=== PATIENT | female | born 1950 | race Caucasian/White ===

== ENCOUNTER → 2016-06-03 | Outpatient (CLI) | payer BC ==
[~2016-06-03] MED LIST: ASPI-482 PO; BENA1TAB6 PO; FEXO180T81 PO; OMEG1CAP6 PO; OMEP40CA5 PO; SIMV10TA3 PO
--- NOTE | 2016-06-04 13:12 | KCIC ---
Bilateral digital screening mammograms with CAD: HISTORY COMPARISON Comparison is made to previous studies dated 05/17/2015, 03/31/2012 and 03/11/2011. FINDINGS Breast density category B. The skin and nipples show no abnormalities. No abnormal lymph nodes are seen in the axilla. The breast parenchyma shows scattered fibroglandular density. There continue to be small parenchymal densities bilaterally which have not changed. There are no new dominant masses, suspicious calcifications or architectural distortions. Benign appearing calcifications are present IMPRESSION No evidence of malignancy. Recommend routine annual mammographic screening. This study was interpreted with the benefit of Computerized Aided Detection (CAD). Mammography is not 100% sensitive in detecting breast cancer. Therefore, a self breast exam and a clinical breast exam are very important. A negative mammogram does not negate a clinically suspicious finding and should not result in a delay in biopsying a clinically suspicious abnormality. BI-RADS category 2. Benign. This patient's information has been entered into a reminder system for the patient to be notified with the results of this examination and a target date for her next mammograms. Electronically signed by: Marissa Wilkinson MD (Jun 04, 2016 13:10:15)
== END | disposition home or self-care (01) ==
LOC: KCIC MAMMO 16:51
PROVIDERS: ATTEND Family Medicine
DX: Z12.31 Encounter for screening mammogram for malignant neoplasm of breast (principal)
CPT/HCPCS: G0202; 77067

== ENCOUNTER 2016-07-26 14:48 | Emergency (ER) | payer BC, OTHER ==
[~2016-07-26] VITALS: Ht 157.5 cm; Wt 81.6 kg
[2016-07-26] MEDS ORDERED: 0.9 % SODIUM CHLORIDE 10 ML DISP.SYRIN. IV PRN (15:15)
--- NOTE | 2016-07-26 15:16 | EKG ---
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
--- NOTE | 2016-07-26 15:23 | PHYS DOC ---
Past Medical History Past Medical History: Diabetes-Type II, GERD, High Cholesterol, Hypertension Past Surgical History: Other Additional Past Surgical Histo: BILAT CTR, BILAT TRIGGER FINGER, LEFT KNEE- TORN MENISCUS Alcohol Use: None Drug Use: None Adult General Chief Complaint Chief Complaint: CHEST PAIN HPI HPI Patient is a pleasant 66 yo diabetic female with 3 days hx of intermittent CP on the left chest that radiates to the left shoulder and arm. she describes the pain as achy and discomfort with increased exhibits coordinator cough, no fever, no URI symptoms, travel outside the country, no recent antibiotics. patient says pain lasted about 1-2 hours in the left chest wall location, which began at rest. no n/v/d/ ab pain, dizziness, fever, ear pain, trauma recently (only 10 days ago ) but she only fell to the ground and struck her knees. no prior hx of the same. patient is concerned about CP but has no symptoms at this time. Differential diagnosis for chest pain: Pericarditis, myocarditis, endocarditis, pneumothorax, pneumonia, aortic dissection, esophageal spasm, esophagitis, peptic ulcer disease, acute coronary syndrome, mediastinitis, Boerhaave syndrome , musculoskeletal chest wall pain, costochondritis, intercostal strain, rib fracture, pulmonary contusion, pneumonitis, pleural effusion, pericardial effusion, pericardial tamponode, and pleurisy. Initial presentation and evaluation will require EKG, cardiac enzymes, supportive workup of CMP CBC mag level lipase TSH chest x-ray possible CT angios chest. She was given aspirin and fluids Review of Systems Review of Systems Constitutional: Denies fever or chills [] Eyes: Denies change in visual acuity, redness, or eye pain [] HENT: Denies nasal congestion or sore throat [] Respiratory: presents with exhibits coordinator cough no SOB Cardiovascular: No additional information not addressed in HPI [] GI: Denies abdominal pain, nausea, vomiting, bloody stools or diarrhea [] : Denies dysuria or hematuria [] Musculoskeletal: Denies back pain or joint pain [] Integument: Denies rash or skin lesions [] Neurologic: Denies headache, focal weakness or sensory changes [] Endocrine: Denies polyuria or polydipsia [] Family History Family History She has a a family history were brother and father both had lower extremity DVTs and massive pulmonary emboli. Current Medications Current Medications Current Medications Medications (Trade) Dose Ordered Sig/Marisela Start Time Stop Time Status Last Admin Dose Admin Aspirin (Children'S Aspirin) 324 mg 1X ONCE 07/26/16 15:30 07/26/16 15:31 DC 07/26/16 15:33 324 MG Sodium Chloride (Normal Saline Flush) 10 ml QSHIFT PRN 07/26/16 15:15 Allergies Allergies Allergies Coded Allergies Type Severity Reaction Last Updated Verified No Known Drug Allergies 12/02/13 No Physical Exam Physical Exam demonstrates HTN Constitutional: Well developed, well nourished, no acute distress, non-toxic appearance. [] HENT: Normocephalic, atraumatic, bilateral external ears normal, oropharynx moist, no oral exudates, nose normal. [] Eyes: PERRLA, EOMI, conjunctiva normal, no discharge. [] Neck: Normal range of motion, no tenderness, supple, no stridor. [] Cardiovascular:Heart rate regular rhythm, no murmur [] Lungs & Thorax: Bilateral breath sounds clear to auscultation [] Abdomen: Bowel sounds normal, soft, no tenderness, no masses, no pulsatile masses. [] Skin: Warm, dry, no erythema, no rash. [] Back: No tenderness, no CVA tenderness. [] Extremities: No tenderness, no cyanosis, no clubbing, ROM intact, no edema. [] Neurologic: Alert and oriented X 3, normal motor function, normal sensory function, no focal deficits noted. [] Psychologic: Affect normal, judgement normal, mood normal. [] Current Patient Data Vital Signs Vital Signs Date Time Temp Pulse Resp B/P (MAP) Pulse Ox O2 Delivery O2 Flow Rate FiO2 07/26/16 19:00 82 154/74 (100) 95 Room Air 07/26/16 15:04 97.4 18 97.4 Lab Values Laboratory Tests Test 07/26/16 15:10 07/26/16 16:00 White Blood Count 7.6 x10^3/uL (4.0-11.0) Red Blood Count 4.87 x10^6/uL (3.50-5.40) Hemoglobin 13.8 g/dL (12.0-15.5) Hematocrit 41.8 % (36.0-47.0) Mean Corpuscular Volume 86 fL (79-100) Mean Corpuscular Hemoglobin 28 pg (25-35) Mean Corpuscular Hemoglobin Concent 33 g/dL (31-37) Red Cell Distribution Width 13.2 % (11.5-14.5) Platelet Count 192 x10^3/uL (140-400) Neutrophils (%) (Auto) 60 % (31-73) Lymphocytes (%) (Auto) 28 % (24-48) Monocytes (%) (Auto) 8 % (0-9) Eosinophils (%) (Auto) 4 % (0-3) H Basophils (%) (Auto) 1 % (0-3) Neutrophils # (Auto) 4.5 x10^3uL (1.8-7.7) Lymphocytes # (Auto) 2.1 x10^3/uL (1.0-4.8) Monocytes # (Auto) 0.6 x10^3/uL (0.0-1.1) Eosinophils # (Auto) 0.3 x10^3/uL (0.0-0.7) Basophils # (Auto) 0.0 x10^3/uL (0.0-0.2) D-Dimer (Tatyana) 0.71 ug/mlFEU (0.00-0.50) H Sodium Level 141 mmol/L (136-145) Potassium Level 4.3 mmol/L (3.5-5.1) Chloride Level 104 mmol/L (98-107) Carbon Dioxide Level 29 mmol/L (21-32) Anion Gap 8 (6-14) Blood Urea Nitrogen 30 mg/dL (7-20) H Creatinine 1.6 mg/dL (0.6-1.0) H Estimated GFR (Cockcroft-Gault) 32.3 Glucose Level 183 mg/dL (70-99) H Calcium Level 9.4 mg/dL (8.5-10.1) Magnesium Level 1.6 mg/dL (1.8-2.4) L Total Bilirubin 0.2 mg/dL (0.2-1.0) Direct Bilirubin 0.1 mg/dL (0.0-0.2) Aspartate Amino Transferase (AST) 24 U/L (15-37) Alanine Aminotransferase (ALT) 42 U/L (14-59) Alkaline Phosphatase 61 U/L (46-116) Creatine Kinase 61 U/L (26-192) Creatine Kinase MB (Mass) 0.9 ng/mL (0.0-3.6) Creatine Kinase MB Relative Index % (0-4) Troponin I Quantitative < 0.017 ng/mL (0.000-0.055) EV-Eep-T-Type Natriuretic Peptide 45 pg/mL (0-124) Total Protein 7.6 g/dL (6.4-8.2) Albumin 3.7 g/dL (3.4-5.0) Lipase 207 U/L (73-393) Thyroid Stimulating Hormone (TSH) 2.718 uIU/mL (0.358-3.74) Urine Collection Type Unknown Urine Color Yellow Urine Clarity Clear Urine pH 5.0 Urine Specific [place] 1.015 Urine Protein Negative mg/dL (NEG-TRACE) Urine Glucose (UA) Negative mg/dL (NEG) Urine Ketones (Stick) Negative mg/dL (NEG) Urine Blood Negative (NEG) Urine Nitrite Negative (NEG) Urine Bilirubin Negative (NEG) Urine Urobilinogen Dipstick 0.2 mg/dL (0.2 mg/dL) Urine Leukocyte Esterase Large (NEG) Urine RBC 0 /HPF (0-2) Urine WBC 20-40 /HPF (0-4) Urine Transitional Epithelial Cells Few /LPF Urine Bacteria 0 /HPF (0-FEW) Urine Hyaline Casts Moderate /HPF Urine Mucus Slight /LPF Laboratory Tests 07/26/16 15:10 Laboratory Tests 07/26/16 15:10 EKG EKG [] EKG timed [address] Payne 07/26/2016 shows normal sinus rhythm heart rate 91. Intervals normal 138 QRS is normal 74 QTc is normal for 13 there is left axis deviation there is no ST segment T-wave changes consistent with acute cornea syndrome there is inverted T waves in V1 which may be a normal variant. Radiology/Procedures Radiology/Procedures [] [address] [place], [place] [id number] IMAGING REPORT Signed PATIENT: KISHA JIMENES ACCOUNT: [id number] : 1950 LOCATION: ER AGE: 66 SEX: F EXAM STATUS: PRE ER ORD. PHYSICIAN: NBA PAYNE MD REASON: chest pain PROCEDURE: PORTABLE CHEST 1V Indication chest pain. A single view chest was obtained. No prior imaging of the chest is available. Inspiratory effort is suboptimal. This may be a function, at least heart, of patient body habitus. There is some slight volume loss at the left lung base probably reflecting atelectasis. Inflammation is not entirely excluded. There is a calcified granuloma in the right lung. Significant pleural fluid is not seen. There is no pneumothorax. IMPRESSION: Slightly suboptimal inspiratory effort. Modest volume loss at the left lung base likely reflects atelectasis. Pneumonia is not entirely excluded. DICTATED and SIGNED BY: DEVYN LAWSON MD DATE: 07/26/16 8090 CC: NBA PAYNE MD; MOHIT HOWE MD ~ IMAGING REPORT Signed PATIENT: KISHA JIMENES ACCOUNT: [id number] : 1950 LOCATION: ER AGE: 66 SEX: F EXAM STATUS: REG ER ORD. PHYSICIAN: NBA PAYNE MD REASON: sob /NM NOTIFIED PROCEDURE: LUNG VENT/PERFUSION SCAN(VQ) Indication: left lower chest wall pain radiates to neck down left arm for 3 days. Technique: Static images are obtained of both lungs following inhalation of 19 mCi of xenon-133 and again following IV administration of 6 mCi of 99 M technetium MAA. Comparison: Chest x-ray from earlier same day Findings: No definite mismatched defects that are worse on the perfusion when compared to the ventilation images. Patchy defects are seen both on the ventilation and perfusion images. Impression: 1. Low probability of pulmonary embolus. Electronically signed by: Sebas Rashid MD (07/26/2016 7:47 PM) DICTATED and SIGNED BY: SEBAS RASHID MD DATE: 07/26/16 123 CC: NBA PAYNE MD; MOHIT HOWE MD ~ Course & Med Decision Making Course & Med Decision Making Pertinent Labs and Imaging studies reviewed. (See chart for details) reviewed nursing notes, vital signs, past medical history and lab work back. Patient presents with chest pain and risk factors to include diabetes, hypertension, hyperlipidemia and a concerning story for possible cardiac chest pain. He states it is been episodic for last 3 days. Patient's initial cardiac enzymes are all normal including EKG, chest x-ray which is suboptimal but does not show any signs of cardiomegaly or infiltrate. Patient'spatient's CBC CMP are all normal TSH is normal. D-dimer was mildly elevated. He is awaiting a CT angios chest. Differential diagnosis for chest pain: Pericarditis, myocarditis, endocarditis, pneumothorax, pneumonia, aortic dissection, esophageal spasm, esophagitis, peptic ulcer disease, acute coronary syndrome, mediastinitis, Boerhaave syndrome , musculoskeletal chest wall pain, costochondritis, intercostal strain, rib fracture, pulmonary contusion, pneumonitis, pleural effusion, pericardial effusion, pericardial tamponode, and pleurisy. Patient's EKG was not showing any signs of acute ischemia. Troponin initially upon arrival was negative patient's CBC was normal patient's myoglobin was unremarkable patient's TSH level is normal unremarkable patient's BUN/ creatinine were mildly elevated creatinine was 1.6. Given her some symptoms of chest pain and positive d-dimer elected to VQ scan this patient. To ensure that there is no pulmonary most given her family history. PERC Criteria Assessment: Age > 50: No HR > 100: No 02 < 95%: No H/o DVT/PE: No Recent trauma/surgery: No Hemoptysis No Exogenous Estrogen: No Unilateral Leg swelling: No Pretest probability > 15%: No Less than 2% risk of PE. No further work up is necessary Patient fortunately is over the age of 50 History: Highly suspicious 2 points moderately suspicious 1. slightly suspicious 0 point EKG: ST segment depression 2. nonspecific repolarization disturbance 1. normal 0 point Age: Greater than 65 2 points, 65-45 1., less than 45 years old 0 points Risk factors:> 3 risk factors 2 points, 1-2 risk factors one point, no risk factors 0 point Troponin: > 2 times normal 2 points, 1-2 times normal 1., normal limits 0 point Total score: Score % pts MACE/n MACE Policy 0-3 32% 1.9% 0.05% Discharge 4-6 51% 413/3136 13% 1.3% Observation Risk management 7-10 17% 518/1045 50% 2.8% Observation Treatment, CAG Patient has a heart score only of 2 which means she can be managed as an outpatient follow-up with cardiology for routine stress testing. Patient tells me that their symptoms given during CC are improved. We reviewed labs and radiology reports with patient and any family at bedside. Time is now 6 :30 PM patient waiting for VQ scan to be completed. Patient tells me that their symptoms given during CC are improved. We reviewed labs and radiology reports with patient and any family at bedside. Time is now 7 :30 PM patient's awaiting for VQ scan. Patient tells me that their symptoms given during CC are improved. We reviewed labs and radiology reports with patient and any family at bedside. VQ scan is now returned read as normal with low probably for pulmonary embolism. His last at length with sister via phone at bedside name Janee Martines Impression: Chest pain unclear etiology, elevated BUN/creatinine renal insufficiency, dehydration. Disposition: Discharge with follow-up with cardiology and primary care physician encouraged to increase hydration aspirin use daily repeat evaluation by cardiology for stress test and reevaluation of any kidney function. Dragon Disclaimer Dragon Disclaimer This electronic medical record was generated, in whole or in part, using a voice recognition dictation system. Departure Departure Impression: Primary Impression: Chest pain Additional Impression: Renal insufficiency Disposition: HOME, SELF-CARE Condition: IMPROVED Referrals: MOHIT HOWE MD (PCP) Patient Instructions: Chest Pain (Nonspecific), Chronic Renal Insufficiency Additional Instructions: Precautions given asked to follow-up with cardiology and primary care doctor for continued evaluation of chest pain origin. Talked about possibly still having heart disease although there is no evidence of heart damage today. Patient has low probability for pulmonary most at this time per was positive because of age and she has significant family history I would advise that she follows up with her primary care doctor for continued hypercoagulation evaluation as well as encourage repeat evaluation of kidney function as as noted to be in a state of insufficiency today. Problem Qualifiers NBA PAYNE MD Jul 26, 2016 15:23
[2016-07-26] MEDS ORDERED: IV NORMAL SALINE 1000ML BAG 1,000 ML IV SCH (15:30)
[2016-07-26] MEDS ORDERED: ASPIRIN CHEWABLE 81 MG TABLET. PO ONE (15:30)
[2016-07-26 15:34] LABS: BASO % 1 % (0-3); EOS % 4 % (0-3); HEMATOCRIT 41.8 % (36.0-47.0); HEMOGLOBIN 13.8 g/dL (12.0-15.5); LYMPH # 2.1 x10^3/uL (1.0-4.8); LYMPH % 28 % (24-48); MEAN CORPUSCULAR HEMOGLOBIN 28 pg (25-35); MEAN CORPUSCULAR HGB CONC 33 g/dL (31-37); MEAN CORPUSCULAR VOLUME 86 fL (79-100); MONO % 8 % (0-9); NEUT % 60 % (31-73); PLATELET COUNT 192 x10^3/uL (140-400); RED BLOOD COUNT 4.87 x10^6/uL (3.50-5.40); RED CELL DISTRIBUTION WIDTH 13.2 % (11.5-14.5); WHITE BLOOD COUNT 7.6 x10^3/uL (4.0-11.0)
--- NOTE | 2016-07-26 15:50 | RAD ---
Indication chest pain. A single view chest was obtained. No prior imaging of the chest is available. Inspiratory effort is suboptimal. This may be a function, at least heart, of patient body habitus. There is some slight volume loss at the left lung base probably reflecting atelectasis. Inflammation is not entirely excluded. There is a calcified granuloma in the right lung. Significant pleural fluid is not seen. There is no pneumothorax. IMPRESSION: Slightly suboptimal inspiratory effort. Modest volume loss at the left lung base likely reflects atelectasis. Pneumonia is not entirely excluded.
[2016-07-26 15:53] LABS: CALCIUM 9.4 mg/dL (8.5-10.1); CREATININE 1.6 mg/dL (0.6-1.0); GFR 32.3; POTASSIUM 4.3 mmol/L (3.5-5.1)
[2016-07-26 15:59] LABS: ALBUMIN 3.7 g/dL (3.4-5.0); DIRECT BILIRUBIN 0.1 mg/dL (0.0-0.2); MAGNESIUM 1.6 mg/dL (1.8-2.4); TOTAL BILIRUBIN 0.2 mg/dL (0.2-1.0); TOTAL PROTEIN 7.6 g/dL (6.4-8.2)
[2016-07-26 16:05] LABS: CKMB MASS 0.9 ng/mL (0.0-3.6); CREATINE KINASE 61 U/L (26-192)
[2016-07-26 16:10] LABS: BILIRUBIN,URINE NEGATIVE (NEG); GLUCOSE,URINE NEGATIVE (NEG); NITRITE,URINE NEGATIVE (NEG); PROTEIN,URINE NEGATIVE (NEG-TRACE); UROBILINOGEN,URINE 0.2 mg/dL (0.2 mg/dL)
[2016-07-26 16:19] LABS: BACTERIA,URINE 0 /HPF (0-FEW); RBC,URINE 0 /HPF (0-2); WBC,URINE 20-40 /HPF (0-4)
--- NOTE | 2016-07-26 19:50 | RAD ---
Indication: left lower chest wall pain radiates to neck down left arm for 3 days. Technique: Static images are obtained of both lungs following inhalation of 19 mCi of xenon-133 and again following IV administration of 6 mCi of 99 M technetium MAA. Comparison: Chest x-ray from earlier same day Findings: No definite mismatched defects that are worse on the perfusion when compared to the ventilation images. Patchy defects are seen both on the ventilation and perfusion images. Impression: 1. Low probability of pulmonary embolus. Electronically signed by: Sebas Hager MD (07/26/2016 7:47 PM)
[2016-07-26 20:24] VITALS: BP 197/93
== END 2016-07-26 20:30 | disposition home or self-care (01) ==
LOC: ER 14:48
DX: R07.89 Other chest pain (principal); N28.9 Disorder of kidney and ureter, unspecified; E11.9 Type 2 diabetes mellitus without complications; K21.9 Gastro-esophageal reflux disease without esophagitis; E78.00 Pure hypercholesterolemia, unspecified; I10 Essential (primary) hypertension
CPT/HCPCS: 36415; 71010; 78582; 80048; 80076; 81001; 82550; 82553; 83690; 83735; 83880; 84443; 84484; 85027; 85379; 87086; 93005; 96361; 96374; 99285; A9540; A9558; J7030; 96360

== ENCOUNTER → 2016-10-07 | Outpatient (CLI) | payer OTHER ==
--- NOTE | 2016-10-07 12:36 | RAD ---
APPROVED REPORT Test Type: Exercise Stress Nurse/Tech: bettye weiss Test Indications: left arm pain and chest pain Cardiac History: HTN, SEE EHR Medications: SEE EHR Medical History: DECREASED KIDNEY FUNCTION, DIABETES, SEE EHR Resting ECG: SR Resting Heart Rate: 68 bpm Resting Blood Pressure: 158/85mmHg Pretest Chest Pain: No chest pain Nurse/Tech Notes NO RESPIRATORY ISSUES, NO CHEST PAIN STATED. Consent: The procedure was explained to the patient in lay terms. Informed consent was witnessed. Panda eout was entered into [facility]. History and Stress Test performed by RANI Buchanan Stress Symptoms LEG FATIGUE, SOA. POST EXERCISE Reason for Termination: Reached target heart rate Target HR: 131 Max HR: 140 bpm 100% of Maximum Predicted HR: 131 bpm Exercise duration: 6:29 min:sec, 3 Stage Exercise capacity: 10.0METs Max Blood Pressure: 198/80mmHg Blood Pressure response to exercise: Normal blood pressure response during stress. Heart Rate response to exercise: WNL Chest Pain: No. Arrhythmia: No. ST Change: No. INTERPRETATION Stress EKG Conclusion: No evidence of stress induced EKG changes. Imaging Protocol IMAGE PROTOCOL: Rest Tc-99m/stress Tc-99m 1 day Rest: Stress: Viability: Radiopharm.Tc99m [id number] Sestamibi Dose11.7mCi 31.5mCi Duration 15min. 10min. Img Date 10/07/2016 10/07/2016 Inj-Img [id number]. 60min. Rest Admin Site:IV - Right AntecubitalAdministrator:RANI Buchanan Stress Admin Site: IV - Right AntecubitalAdministrator: RANI Buchanan STRESS DATA End Diast. Vol.45.0mlAv. Heart Rate77.0bpm End Syst. Vol.4.0mlCO Index BSA0.0L/min Myocardial Mass94.0gEject. Ugrilurm14.0% Stress Rates Pk. Fill Rate5.02EDV/secLVtime Pk. Fill 224.12msec Pk. Empty Rate6.50ESV/secLVtime Pk. Aoclt323.08msec 02/26 Pk. Fill1.12EDV/sec Stress Scores Regional WT0.00Summed WT0.00 Regional WM0.00Summed WM0.00 The rest and stress images show normal perfusion, normal contraction and thickening. LV Perf. Quant 17 Seg. SSS0.00 17 Seg. SRS0.00 17 Seg. SDS0.00 Stress Defect Extent (% LAD)0.00Rest Defect Extent (% LAD)0.00Rev. Defect Extent (% LAD)0.00 Stress Defect Extent (% LCX) 0.00Rest Defect Extent (% LCX)0.00Rev. Defect Extent (% LCX)0.00 Stress Defect Extent (% RCA)0.00Rest Defect Extent (% RCA)0.00Rev. Defect Extent (% RCA)0.00 Stress Defect Extent (% ADIA)0.00Rest Defect Extent (% ADIA)0.00Rev. Defect Extent (% ADIA)0.00 Other Information Quality:Good Risk Assessment: Low Risk Conclusion 1. No evidence of EKG changes with stress testing. 2. Normal perfusion at stress/rest. 3. Low risk study. 4. EF > 60%.
== END | disposition home or self-care (01) ==
LOC: NM 07:51
PROVIDERS: ATTEND Internal Medicine Cardiovascular Disease
DX: R07.9 Chest pain, unspecified (principal); E11.9 Type 2 diabetes mellitus without complications
CPT/HCPCS: 78452; 93017; 96374; 96376; A9500

== ENCOUNTER → 2017-06-09 | Outpatient (CLI) | payer OTHER | END | disposition home or self-care (01) | LOC: KCIC MAMMO 16:45 | DX: Z12.31 Encounter for screening mammogram for malignant neoplasm of breast (principal); I10 Essential (primary) hypertension; E11.9 Type 2 diabetes mellitus without complications; E78.00 Pure hypercholesterolemia, unspecified | CPT/HCPCS: 77063; 77067 ==

== ENCOUNTER 2017-08-10 04:50 | Emergency (ER) | payer OTHER ==
[2017-08-10 05:22] LABS: BILIRUBIN,URINE NEGATIVE (NEG); CLARITY,URINE CLEAR; COLOR,URINE YELLOW; GLUCOSE,URINE NEGATIVE (NEG); NITRITE,URINE NEGATIVE (NEG); PH,URINE 5.5; PROTEIN,URINE 100 mg/dL (NEG-TRACE); UROBILINOGEN,URINE 0.2 mg/dL (0.2 mg/dL)
[2017-08-10 05:26] LABS: BACTERIA,URINE FEW /HPF (0-FEW); RBC,URINE OCC /HPF (0-2); SQUAMOUS EPITHELIAL CELL,UR MOD /LPF
[2017-08-10 05:27] LABS: AMORPHOUS SEDIMENT,UR PRESENT /HPF
[2017-08-10 05:35] LABS: ADD MAN DIFF? NO
[2017-08-10 05:46] LABS: BASO # 0.1 x10^3/uL (0.0-0.2); BASO % 1 % (0-3); EOS % 0 % (0-3); HEMATOCRIT 40.6 % (36.0-47.0); LYMPH # 0.9 x10^3/uL (1.0-4.8); LYMPH % 8 % (24-48); MEAN CORPUSCULAR HEMOGLOBIN 29 pg (25-35); MEAN CORPUSCULAR HGB CONC 35 g/dL (31-37); MEAN CORPUSCULAR VOLUME 85 fL (79-100); MONO # 0.9 x10^3/uL (0.0-1.1); MONO % 8 % (0-9); NEUT # 9.1 x10^3uL (1.8-7.7); NEUT % 83 % (31-73); PLATELET COUNT 170 x10^3/uL (140-400); RED BLOOD COUNT 4.77 x10^6/uL (3.50-5.40); RED CELL DISTRIBUTION WIDTH 13.1 % (11.5-14.5); WHITE BLOOD COUNT 10.9 x10^3/uL (4.0-11.0)
[2017-08-10 05:47] LABS: ANION GAP 9 (6-14); BLOOD UREA NITROGEN 25 mg/dL (7-20); CALCIUM 9.1 mg/dL (8.5-10.1); CARBON DIOXIDE 27 mmol/L (21-32); CHLORIDE 102 mmol/L (98-107); CREATININE 1.5 mg/dL (0.6-1.0); GFR 34.7; GLUCOSE 218 mg/dL (70-99); POTASSIUM 4.1 mmol/L (3.5-5.1); SODIUM 138 mmol/L (136-145)
[2017-08-10 05:53] LABS: ALBUMIN 3.4 g/dL (3.4-5.0); ALK PHOS 51 U/L (46-116); ALT (SGPT) 27 U/L (14-59); AST (SGOT) 16 U/L (15-37); DIRECT BILIRUBIN 0.2 mg/dL (0.0-0.2); LIPASE 169 U/L (73-393); TOTAL BILIRUBIN 0.8 mg/dL (0.2-1.0); TOTAL PROTEIN 7.2 g/dL (6.4-8.2)
== END 2017-08-10 08:12 | disposition home or self-care (01) ==
LOC: ER 04:50
DX: R10.32 Left lower quadrant pain (principal); E11.9 Type 2 diabetes mellitus without complications; E78.00 Pure hypercholesterolemia, unspecified; I10 Essential (primary) hypertension; K21.9 Gastro-esophageal reflux disease without esophagitis
CPT/HCPCS: 36415; 74176; 80048; 80076; 81001; 83690; 85025; 99285-25

== ENCOUNTER 2017-08-21 08:59 | Emergency (ER) | payer OTHER | END 2017-08-21 10:50 | disposition home or self-care (01) | LOC: ER 08:59 | DX: M25.462 Effusion, left knee (principal); E11.9 Type 2 diabetes mellitus without complications; K21.9 Gastro-esophageal reflux disease without esophagitis; E78.00 Pure hypercholesterolemia, unspecified; I10 Essential (primary) hypertension | CPT/HCPCS: 73562; 99284 ==

== ENCOUNTER 2017-08-30 16:33 | Emergency (ER) | payer OTHER ==
[2017-08-30 17:39] LABS: ADD MAN DIFF? NO
[2017-08-30 17:41] LABS: BASO # 0.1 x10^3/uL (0.0-0.2); BASO % 1 % (0-3); EOS # 0.2 x10^3/uL (0.0-0.7); EOS % 2 % (0-3); HEMATOCRIT 38.6 % (36.0-47.0); HEMOGLOBIN 13.1 g/dL (12.0-15.5); LYMPH # 1.8 x10^3/uL (1.0-4.8); LYMPH % 24 % (24-48); MEAN CORPUSCULAR HEMOGLOBIN 29 pg (25-35); MEAN CORPUSCULAR HGB CONC 34 g/dL (31-37); MEAN CORPUSCULAR VOLUME 86 fL (79-100); MONO # 0.6 x10^3/uL (0.0-1.1); MONO % 8 % (0-9); NEUT # 4.7 x10^3uL (1.8-7.7); NEUT % 65 % (31-73); PLATELET COUNT 220 x10^3/uL (140-400); RED BLOOD COUNT 4.47 x10^6/uL (3.50-5.40); WHITE BLOOD COUNT 7.3 x10^3/uL (4.0-11.0)
[2017-08-30 17:56] LABS: ANION GAP 7 (6-14); BLOOD UREA NITROGEN 39 mg/dL (7-20); BUN/CREATININE RATIO 23 (6-20); CALCIUM 8.9 mg/dL (8.5-10.1); CARBON DIOXIDE 28 mmol/L (21-32); CHLORIDE 101 mmol/L (98-107); CREATININE 1.7 mg/dL (0.6-1.0); GFR 30.1; GLUCOSE 208 mg/dL (70-99); SODIUM 136 mmol/L (136-145)
[2017-08-30 18:02] LABS: ALBUMIN 3.4 g/dL (3.4-5.0); ALBUMIN/GLOBULIN RATIO 0.9 (1.0-1.7); ALK PHOS 65 U/L (46-116); ALT (SGPT) 25 U/L (14-59); AST (SGOT) 16 U/L (15-37); C-REACTIVE PROTEIN 15.8 mg/L (0-3.3); TOTAL BILIRUBIN 0.4 mg/dL (0.2-1.0); TOTAL PROTEIN 7.4 g/dL (6.4-8.2)
[2017-08-30] MEDS: CLINDAMYCIN 900MG PREMIX 50 ML IV (18:30)
== END 2017-08-30 19:35 | disposition home or self-care (01) ==
LOC: ER 19:35
DX: L03.115 Cellulitis of right lower limb (principal); E11.9 Type 2 diabetes mellitus without complications; K21.9 Gastro-esophageal reflux disease without esophagitis; E78.00 Pure hypercholesterolemia, unspecified; I10 Essential (primary) hypertension
CPT/HCPCS: 36415; 73630; 80053; 85025; 86140; 93971; 96365; 99285-25; J3490

== ENCOUNTER → 2017-09-09 | Outpatient (CLI) | payer OTHER | END | disposition home or self-care (01) | LOC: KCIC MRI 08:08 | DX: S83.242A Other tear of medial meniscus, current injury, left knee, initial encounter (principal); M17.12 Unilateral primary osteoarthritis, left knee; M94.262 Chondromalacia, left knee; X58.XXXA Exposure to other specified factors, initial encounter; Y93.89 Activity, other specified; Y92.89 Other specified places as the place of occurrence of the external cause; Y99.8 Other external cause status | CPT/HCPCS: 73721 ==

== ENCOUNTER → 2018-06-16 | Outpatient (CLI) | payer OTHER ==
[2017-08-30 19:22] VITALS: BP 152/71
[~2018-06-16] MED LIST changes: +AMOX1TAB61 PO; +CLIN300C8 PO; +HYDR-3164 PO; +ZOLPIDEM 5 MG TABLET. PO ONE
--- NOTE | 2018-06-17 10:04 | SLEEP ---
DATE OF STUDY: 06/16/2018 ATTENDING PHYSICIAN: Dr. Way. The patient is 67 years old, who weighs 180 pounds with a BMI of 33. The patient's Accord score was 6. The patient underwent diagnostic sleep study at [facility]. During the night study, the patient spent 422 minutes in bed and slept for 384 minutes with a sleep efficiency of 91%. Sleep latency was 15 minutes with a REM latency of 156 minutes. Overall, sleep architecture showed normal stage 1 sleep, increased stage 2 sleep, normal N3 sleep and reduced REM sleep. During the night study, the patient had 55 obstructive apneas, 5 mixed apneas, 1 central apnea and 66 hypopneas. The patient's apnea-hypopnea index was 20 per hour, supine index of 23 per hour with a REM index of 69 per hour. EKG monitoring revealed normal sinus rhythm, average heart rate 72 beats per minute. No arrhythmias observed. Nocturnal oximetry study revealed a mean oxygen saturation of 93% with lowest of 55%. A 35% of time oxygen saturation remained between 80% and 89%. No clinically significant PLMS observed. IMPRESSION: 1. Moderate sleep apnea-hypopnea syndrome with worsening during REM sleep. 2. Nocturnal hypoxia secondary to obstructive sleep apnea, predominantly in REM sleep. 3. No clinically significant periodic limb movements in sleep. RECOMMENDATIONS: 1. The patient would benefit from return to the sleep lab for CPAP titration study. 2. Once optimum CPAP pressure is achieved, then follow up in 4-6 weeks to assess compliance with CPAP and to document clinical improvement. 3. Weight loss is advised. 4. Avoid COAT CHECKER depressants. 5. Cautioned regarding driving until symptoms of sleep apnea resolve with the use of CPAP. MARLEEN PIERCE MD DR: DEEDEE/cara JOB#: [id number] / [id number] MOHIT Ramos MD
== END | disposition home or self-care (01) ==
LOC: RT 19:06
PROVIDERS: ATTEND Family Medicine
DX: G47.33 Obstructive sleep apnea (adult) (pediatric) (principal); E66.01 Morbid (severe) obesity due to excess calories
CPT/HCPCS: 95810

== ENCOUNTER → 2018-07-06 | Outpatient (CLI) | payer OTHER ==
[2017-08-30 19:22] VITALS: BP 152/71
[~2018-07-06] MED LIST changes: -ZOLPIDEM 5 MG TABLET. PO ONE
--- NOTE | 2018-07-07 07:43 | KCIC ---
EXAM: Bilateral digital screening mammogram with tomosynthesis. HISTORY: 67-year-old female presents for screening mammography.. TECHNIQUE: Full-field digital craniocaudal and mediolateral oblique 2D and 3D tomosynthesis images of both breasts are obtained for evaluation. Computer aided detection with Inv[employer] software version 9.3 was applied. COMPARISON: 06/09/2017 BREAST PARENCHYMAL DENSITY: Level B - Scattered fibroglandular densities. FINDINGS: There is no new suspicious mass, microcalcification or region of architectural distortion. There are multiple stable nodular densities within both breasts. IMPRESSION: BI-RADS Category 2: Benign finding(s). RECOMMENDATION: Annual mammography is recommended. If your mammogram demonstrates that you have dense breast tissue, which could hide abnormalities, and if you have other risk factors for breast cancer that have been identified, you might benefit from supplemental screening tests that may be suggested by your ordering physician. Dense breast tissue, in and of itself, is a relatively common condition. This information is not provided to cause undue concern, but rather to raise your awareness and to promote discussion with your physician regarding the presence of other risk factors, in addition to dense breast tissue. A report of your mammography results will be sent to you and your physician. You should contact your physician if you have any questions or concerns regarding this report. Mammography is a sensitive method for finding small breast cancers, but it does not detect them all and is not a substitute for careful clinical examination. A negative mammogram does not negate a clinically suspicious finding and should not result in delay in biopsying a clinically suspicious abnormality. PQRS compliance statement - Patient information was entered into a reminder system with a target due date for the next mammogram. "Our facility is accredited by the [employer] Mammography Program." Electronically signed by: Taryn Gagnon MD (07/07/2018 7:40 AM) [id number]
== END | disposition home or self-care (01) ==
LOC: KCIC MAMMO 16:39
PROVIDERS: ATTEND Family Medicine
DX: Z12.31 Encounter for screening mammogram for malignant neoplasm of breast (principal)
CPT/HCPCS: 77063; 77067

== ENCOUNTER → 2018-07-27 | Outpatient (CLI) | payer OTHER ==
[2017-08-30 19:22] VITALS: BP 152/71
[~2018-07-27] MED LIST changes: +ZOLPIDEM 5 MG TABLET. PO ONE
--- NOTE | 2018-07-28 12:51 | SLEEP ---
DATE OF STUDY: 07/27/2018 ATTENDING PHYSICIAN: Dr. Way, Dr. Nhan Najera and nurse practitioner. The patient is a 68-year-old who weighs 180 pounds with a BMI of 33. The patient had a home sleep study performed on 06/16/2018 and was found to have moderate DAMIEN with worsening during REM sleep. The patient's total AHI was 20 per hour with a REM AHI of 69 per hour. The patient was referred back for CPAP titration study. During the night study, the patient spent 409 minutes in bed and slept for 332 minutes with a sleep efficiency of 81%. Sleep latency was 51 minutes with a REM latency of 190 minutes. Overall, sleep architecture showed normal stage 1 sleep, increased stage 2 sleep, normal N3 sleep and reduced REM sleep, which was only 3% of the total sleep time. EKG monitoring revealed a normal sinus rhythm. No sustained arrhythmias observed. PLMS were seen at index of 22 per hour and 7 per hour caused EEG arousals. The patient was started on CPAP at a pressure of 7 cm water and titrated up to 12 cm water. At the final pressure, the patient slept for 208 minutes. The patient had supine as well as REM sleep. The patient's AHI was reduced to 0 per hour and oxygen saturation remained above 90%. The patient used small size nasal cushions. IMPRESSION: 1. Moderate sleep apnea with worsening during REM sleep, diagnosed by previous sleep study. 2. Moderate PLMS. RECOMMENDATIONS: 1. CPAP at 12 cm water completely eliminated the patient's sleep apnea and should be used on a nightly basis. 2. Follow up in 4-6 weeks to assess compliance with CPAP and to document clinical improvement. 3. Weight loss is strongly advised. 4. Avoid SYSTEM TRAINER depressants. 5. Caution regarding driving until symptoms of sleep apnea resolve with the use of CPAP. 6. The PLMS does not need to be treated unless the patient has symptoms of restless legs during the day. MARLEEN PIERCE MD DR: DEEDEE/cara JOB#: [id number] / [id number]
== END | disposition home or self-care (01) ==
LOC: RT 19:09
PROVIDERS: ATTEND Family Medicine
DX: G47.30 Sleep apnea, unspecified (principal)
CPT/HCPCS: 95811

== ENCOUNTER → 2018-08-03 | Outpatient (CLI) | payer OTHER ==
[2017-08-30 19:22] VITALS: BP 152/71
[~2018-08-03] MED LIST changes: -ZOLPIDEM 5 MG TABLET. PO ONE
--- NOTE | 2018-08-03 16:01 | KCIC ---
Bone densitometry 08/03/2018 9:00 AM Indication: Postmenopausal screening exam Comparison Study: None. Discussion: Bone Densitometry was performed with dual photon absorption of the lumbar spine and left proximal femurs. Lumbar Spine: Bone average density is 1.239g/cm2 for L1-L4. T-Score is 1.7. Left proximal femur: Bone average density is 1.042.g/cm2. T-Score is 0.8. IMPRESSION: Normal bone mineral density measurements of the lumbar spine and proximal left femur Note: Definitions established by the World Health Organization: Normal: T-score is -1.0 or above. Osteopenia: T-score is between -1.0 and -2.5. Osteoporosis: T-score is -2.5 or below. Electronically signed by: Ck Castillo MD (08/03/2018 3:58 PM) [id number]
== END | disposition home or self-care (01) ==
LOC: KCIC DEXA 08:46
PROVIDERS: ATTEND Family Medicine
DX: Z13.820 Encounter for screening for osteoporosis (principal); Z78.0 Asymptomatic menopausal state
CPT/HCPCS: 77080

== ENCOUNTER → 2019-08-26 | Outpatient (CLI) | payer MEDICARE ==
[2017-08-30 19:22] VITALS: BP 152/71
[~2019-08-26] MED LIST changes: +OMEP40CA45 PO; -OMEP40CA5 PO; +SIMV10TA15 PO; -SIMV10TA3 PO
--- NOTE | 2019-08-26 18:50 | KCIC ---
Bilateral digital screening mammograms with 3-D tomosynthesis: Reason for examination: Routine screening. Comparison is made to previous studies dated back to 05/17/2015. Bilateral mammograms in CC and oblique projections were obtained with 2-D imaging and 3-D tomosynthesis imaging on a Siemens Inspiration unit and reviewed on the workstation. Interpretation was made with the benefit of CAD. The skin and nipples show no abnormalities. No abnormal axillary lymph nodes are seen. The breast parenchyma shows scattered fatty and fibroglandular density. (Breast density: Category B.) There are small nodular parenchymal densities bilaterally which are stable. There are no new dominant masses, suspicious calcifications or architectural distortion. Benign calcifications are present. Impression: No evidence of malignancy. Recommend routine screening. BI-RAD Category 2: Benign. "Our facility is accredited by the [employer] Mammography Program." This patient's information has been entered into a reminder system for the patient to be notified with the results of her examination and a target date for the next mammogram. Electronically signed by: Poonam Wilkinson MD (08/26/2019 6:47 PM) [id number]
== END | disposition home or self-care (01) ==
LOC: KCIC MAMMO 08:56
PROVIDERS: ATTEND Family Medicine
DX: Z12.31 Encounter for screening mammogram for malignant neoplasm of breast (principal); N64.89 Other specified disorders of breast
CPT/HCPCS: 77063; 77067

== ENCOUNTER → 2020-09-04 | Outpatient (CLI) | payer MEDICARE ==
[2017-08-30 19:22] VITALS: BP 152/71
[~2020-09-04] MED LIST changes: -CLIN300C8 PO; +CLIN300C9 PO; -OMEP40CA45 PO; +OMEP40CA7 PO
--- NOTE | 2020-09-04 11:43 | KCIC ---
Bilateral digital screening mammograms with 3-D tomosynthesis: Reason for examination: Routine screening. Comparison is made to previous studies dated back to 05/17/2015. Bilateral mammograms in CC and oblique projections were obtained with 2-D imaging and 3-D tomosynthes is imaging on a Siemens Inspiration unit and reviewed on the workstation. Interpretation was made wit h the benefit of CAD. The skin and nipples show no abnormalities. No abnormal axillary lymph nodes are seen. The breast par enchyma shows scattered fatty and fibroglandular density. (Breast density: Category B.) There continu e to be small nodular parenchymal densities bilaterally which are stable. There are however new nodul es seen in the right breast at the 6:30 position 9 cm from the nipple and in the left breast at the 7 :00 position 7 cm and 7.5 cm from the nipple. These appear well-circumscribed and likely represent cy sts. Further evaluation with ultrasound is recommended. There are no other new dominant masses, suspi cious calcifications or architectural distortion. Benign calcifications are present. Impression: Small new nodular parenchymal densities at the 6:30 position of the right breast at 7:00 position of the left breast. Recommend further evaluation with ultrasound. BI-RADS Category 0: Incomplete. Needs additional imaging evaluation "Our facility is accredited by the [employer] Mammography Program." This patient's information has been entered into a reminder system for the patient to be notified wit h the results of her examination and a target date for the next mammogram. Electronically signed by: Poonam Wilkinson MD (09/04/2020 11:41 AM) [email or web address]
== END ==
LOC: KCIC MAMMO 09:40
PROVIDERS: ATTEND Family Medicine
DX: Z12.31 Encounter for screening mammogram for malignant neoplasm of breast (principal); N63.13 Unspecified lump in the right breast, lower outer quadrant; N63.24 Unspecified lump in the left breast, lower inner quadrant
CPT/HCPCS: 77063; 77067

== ENCOUNTER → 2020-09-19 | Outpatient (CLI) | payer MEDICARE ==
[2017-08-30 19:22] VITALS: BP 152/71
--- NOTE | 2020-09-19 10:58 | KCIC ---
EXAM: Bilateral breast sonogram. HISTORY: 70-year-old female presents for evaluation of nodularity within both breasts demonstrated on a mammogram dated 09/04/2020. TECHNIQUE: Sonographic imaging of both breasts including all 4 quadrants and the retroareolar regions was performed. COMPARISON: Mammograms dated 09/04/2020 and 08/26/2019. FINDINGS: Sonographic imaging of the right breast demonstrates a 6 mm hypoechoic lesion with internal echoes and slight angulated margins at the 6:30 position 5.5 cm from the nipple. There is blood flow surrounding this lesion. However, no internal blood flow is seen. The imaging appearance favors a co mplicated cyst with internal debris. This likely corresponds with the mammographic finding of concern . There are benign axillary lymph nodes. Sonographic imaging of the left breast demonstrates a 4 mm round hypoechoic lesion with internal echo es at the 7:00 position 5 cm from the nipple, the appearance of which favors a complicated cyst. This demonstrated no internal blood flow. This likely corresponds with nodularity of concern on the recen t screening mammogram. There are benign axillary lymph nodes. IMPRESSION: 1. 6 mm suspected complicated cyst within the right breast at the 6:30 position and 4 mm suspected co mplicated cyst within the left breast at the 7:00 position, corresponding with areas of mammographic nodularity. There is no sonographic correlate for an additional tiny nodule within the left breast de monstrated mammographically. The absence of a suspicious sonographic correlate favors benignity. 2. BI-RADS Category 3: Probably benign finding(s). Precautionary short-term follow-up with a bilatera l breast sonogram is recommended. Electronically signed by: Taryn Gagnon MD (09/19/2020 10:56 AM) [id number]
== END ==
LOC: KCIC US 10:18
PROVIDERS: ATTEND Family Medicine
DX: N63.20 Unspecified lump in the left breast, unspecified quadrant (principal); N63.10 Unspecified lump in the right breast, unspecified quadrant
CPT/HCPCS: 76641